=== PATIENT | male | born 1975 | race Caucasian/White ===

== ENCOUNTER 2020-12-18 09:39 | Emergency (ER) | payer OTHER ==
[~2020-12-18] VITALS: Ht 175.3 cm; Wt 146.1 kg
[~2020-12-18 09:39] MED LIST: AMIODARONE 150 MG/3 ML VIAL IVP ONE; ARIP20TA5 PO; CALCIUM CHLORIDE 1,000 MG/10 ML DISP.SYRIN IV ONE; CARB15DR3 EACHEYE; CLON1TAB11 PO; CYCL-331 PO; DEXT20TA2 PO; DEXT20TA24 PO; EPINEPHrine SYRINGE 1 MG/10 ML SYRINGE ONE; FLUO20CA20 PO; FLUT16SP21 NS; HYDR-2145 PO; HYDR-2769 PO; LISI40TA6 PO; LUBRICATING OPH; METO25TA4 PO; PRAZ2CAP2 PO; SODIUM BICARB ADULT 8.4% 50 MEQ/50 ML DISP.SYRIN. ONE; ZOLP10TA4 PO; hydrocortisone 2.5% TOP
--- NOTE | 2020-12-18 10:06 | PHYS DOC ---
Adult General HPI HPI Patient is 45-year-old male who presents to the emergency room in cardiac arrest. At this time it is unclear what caused patient's cardiac arrest. He was found in his bed without a pulse. It is unclear how long he has been down. Paramedics state that he was nonregular upon their arrival and they started compressions. He has been in asystole for them. He received 4 doses of epinephrine. Review of Systems Review of Systems Unable to obtain Physical Exam Physical Exam General: unresponsive, toxic appearing, CPR in progress HEENT: Normocephalic, atraumatic, no drainage from eyes Neck: Supple, atraumatic, trachea midline Cardiology: No radial/femoral pulses bilaterally, no heart sounds Pulmonary: Bilateral breath sounds Abdomen: soft, nondistended Skin: intact, dry, cool Extremities: No deformities Neurology: nonresponsive, nonverbal, no movement, GCS 3 EKG EKG [] Radiology/Procedures Radiology/Procedures [] Heart Score C/O Chest Pain: N/A Risk Factors: Risk Factors: DM, Current or recent (<one month) smoker, HTN, HLP, family history of CAD, obesity. Risk Scores: Risk Factors: DM, Current or recent (<one month) smoker, HTN, HLP, family history of CAD, obesity. Course & Med Decision Making Course & Med Decision Making Pertinent Labs and Imaging studies reviewed. (See chart for details) Patient is a 45-year-old male who presents to the emergency room in cardiac arrest. Patient had a unwitnessed arrest and did not receive compressions prior to EMS arrival. Patient received epinephrine prior to arrival and has been in asystole during transport. Upon arrival to the ED a pulse check was done and patient did not have a pulse and was in fine ventricular fibrillation. Patient was defibrillated. He was given amiodarone, epinephrine, bicarbonate, calcium here in the emergency room. Bedside ultrasound was done to evaluate cardiac motion and patient does not have cardiac motion. Patient did have bilateral breath sounds on exam. After extensive efforts by EMS in the emergency room patient was pronounced at 0955. At that time there was no cardiac activity on ultrasound, patient had nonreactive pupils, no spontaneous breathing, and was in [asystole]. Family was notified and they were offered a chance to see their loved one and a process improvement manager was offered. All of their questions were answered. Donavon Disclaimer Donavon Disclaimer This electronic medical record was generated, in whole or in part, using a voice recognition dictation system. Critical Care Note Comments Critical Care: Authorized and Performed by: Yosef Liu MD Total critical care time: approximately 35 minutes Due to a high probability of clinically significant, life threatening det erioration, the patient required my highest level of preparedness to intervene emergently and I personally spent this critical care time directly and personally managing the patient. This critical care time included obtaining a history; examining the patient; pulse oximetry; ventilator management if necessary; ordering and review of studies; arranging urgent treatment with development of a management plan; evaluation of patient's response to treatment; frequent reassessment; discussion with patient/family; and, discussions with other providers. This critical care time was performed to assess and manage the high probability of imminent, life-threatening deterioration that could result in multi-organ failure. It was exclusive of separately billable procedures and treating other patients and teaching time. Please see MDM section and the rest of the note for further information on patient assessment and treatment. Departure Departure: Impression: Primary Impression: Cardiac arrest Disposition: 20 Condition: YOSEF LIU MD Dec 18, 2020 10:06
--- NOTE | 2020-12-18 11:54 | NUR ---
Investigation regarding code ruma arrival at [facility] 12/18/2020, reportedly within approximately 1 week of receiving a COVID-19 vaccination, with subsquent reaction requiring medical treatment. Working with family to identify date/location and vaccine received to determine whether this case requires further reporting to [email or web address] for vaccine-associated event. Initial report by family (pt's sister Kenneth- ) that pt received COVID19 vaccine [facility] in [facility], [place] was incorrect. [facility] 12[facility] for dyspnea, told to follow up w/PCP, declined vaccine stating preference to obtain "in the community'. Pt's family believes he may have received vaccine as part of his employment at [employer]() in [place], [place]. Message left requesting return call from this location. Per [email or web address], report should be filed on [email or web address] to start the investigation with just the information available, and can be resubmitted later with additional information. Preliminary report filed.
== END 2020-12-18 11:57 ==
LOC: MERGE 09:39 → EDBD 09:39 → ER 09:39
DX: I46.9 Cardiac arrest, cause unspecified (principal)
CPT/HCPCS: 92950; 99285; J0171; J0282